=== PATIENT | female | born 1970 | race Caucasian/White ===

== ENCOUNTER 2017-07-27 11:15 | Emergency (ER) | payer OTHER ==
[2017-07-27] MEDS ORDERED: SODIUM CHLORIDE 1,000 ML IV STA (11:28)
[2017-07-27 11:32] VITALS: BP 125/87; PULSE 110; TEMP 97.4; BMI 23.1
--- NOTE | 2017-07-27 12:08 | PDOC ---
History of Present Illness <Radha Nj - Last Filed: 07/27/17 17:40> - General History Source: Patient, Family Exam Limitations: No Limitations - History of Present Illness Initial Comments: 07/27/17 11:59 47-year-old female patient with past medical history of hysterectomy, appendectomy presents with abdominal pain, fevers and bloody diarrhea. 2 days ago, the patient went out to dinner with her and had oysters, boar, grilled octupus. The patient's had eaten oysters and did not get sick. Overnight, patient developing a strong constant lower abdominal pain and subsequent blood in her stools. Was loose watery with blood in it. Denies nausea or vomiting but started developing fevers yesterday. MAXIMUM TEMPERATURE of 101. Never had a colonoscopy. First-time episode. Came into the ED for further evaluation. <Roberto Mcclain - Last Filed: 07/27/17 17:49> - General Chief Complaint: Diarrhea Stated Complaint: CRAMPING AND DIARRHEA Time Seen by Provider: 07/27/17 11:26 Past History <Radha Nj - Last Filed: 07/27/17 17:40> - Past Medical History COPD: No - Surgical History Appendectomy: Yes - Suicide/Smoking/Psychosocial Hx Smoking History: Never smoked Hx Alcohol Use: Yes (OCCASIONAL ONLY) Drug/Substance Use Hx: No Substance Use Type: None <Roberto Mcclain - Last Filed: 07/27/17 17:49> - Past Medical History Allergies/Adverse Reactions: Allergies Allergy/AdvReac Type Severity Reaction Status Date / Time ibuprofen Allergy Intermediate Swelling Verified 07/27/17 11:21 Penicillins Allergy Unknown Verified 07/27/17 11:21 Home Medications: Ambulatory Orders Ciprofloxacin [Cipro -] 500 mg PO Q12H #14 tablet 07/27/17 metroNIDAZOLE [Flagyl -] 500 mg PO Q8H #21 tablet 07/27/17 Review of Systems - Review of Systems Able to Perform ROS?: Yes Comments:: 07/27/17 12:08 GENERAL/CONSTITUTIONAL: +fever. No weakness. HEAD, EYES, EARS, NOSE AND THROAT: No change in vision. No ear pain or discharge. No sore throat. CARDIOVASCULAR: No chest pain or shortness of breath. RESPIRATORY: No cough, wheezing, or hemoptysis. GASTROINTESTINAL: + abdominal pain and bloody stools GENITOURINARY: No dysuria, frequency, or change in urination. MUSCULOSKELETAL: No joint or muscle swelling or pain. No neck or back pain. SKIN: No rash NEUROLOGIC: No headache, vertigo, loss of consciousness, or change in strength/ sensation. ENDOCRINE: No increased thirst. No abnormal weight change. HEMATOLOGIC/LYMPHATIC: No anemia, easy bleeding, or history of blood clots. ALLERGIC/IMMUNOLOGIC: No hives or skin allergy. <Roberto Mcclain - Last Filed: 07/27/17 17:49> *Physical Exam - Vital Signs Last Vital Signs Temp Pulse Resp BP Pulse Ox 97.4 F L 110 H 16 125/87 97 07/27/17 11:20 07/27/17 11:20 07/27/17 11:20 07/27/17 11:20 07/27/17 11:20 <Radha Nj - Last Filed: 07/27/17 17:40> - Vital Signs Last Vital Signs Temp Pulse Resp BP Pulse Ox 97.4 F L 110 H 16 125/87 97 07/27/17 11:20 07/27/17 11:20 07/27/17 11:20 07/27/17 11:20 07/27/17 11:20 - Physical Exam Comments: 07/27/17 12:09 GENERAL: Awake, alert, and fully oriented, in no acute distress. HEAD: No signs of trauma EYES: PERRLA, EOMI, sclera anicteric, conjunctiva clear ENT: Auricles normal inspection, hearing grossly normal, nares patent NECK: Normal ROM, supple LUNGS: Breath sounds equal, clear to auscultation bilaterally. No wheezes, and no crackles HEART: Regular rate and rhythm, normal S1 and S2, no murmurs, rubs or gallops ABDOMEN: TTP suprapubic, LLQ, left mid abdomen. Soft, No guarding, no rebound. No masses RECTAL: no hemorrhoids or tears. red blood on glove. EXTREMITIES: Normal range of motion, no edema. No clubbing or cyanosis. No cords, erythema, or tenderness NEUROLOGICAL: Cranial nerves II through XII grossly intact. Normal speech, normal gait SKIN: Warm, Dry, normal turgor, no rashes or lesions noted. <Roberto Mcclain - Last Filed: 07/27/17 17:49> ED Treatment Course - LABORATORY CBC & Chemistry Diagram: 07/27/17 11:35 07/27/17 14:30 - ADDITIONAL ORDERS Additional order review: Laboratory Results 07/27/17 07/27/17 07/27/17 14:30 11:35 11:35 PT with INR INR PTT (Actin FS) Sodium 135 L Potassium 3.7 Chloride 102 Carbon Dioxide 25 Anion Gap 8 BUN 12 Creatinine < 0.8 Creat Clearance w eGFR > 60 Random Glucose 108 H Lactic Acid 1.2 Calcium 8.4 Phosphorus 3.1 Magnesium 1.7 L Total Bilirubin 0.9 AST 17 ALT 15 Alkaline Phosphatase 47 Total Protein 6.0 L Albumin 3.5 Lipase 107 Stool Occult Blood Blood Type O POSITIVE Antibody Screen Negative 07/27/17 07/27/17 11:35 11:35 PT with INR 13.0 INR 1.16 PTT (Actin FS) 26.1 L Sodium Potassium Chloride Carbon Dioxide Anion Gap BUN Creatinine Creat Clearance w eGFR Random Glucose Lactic Acid Calcium Phosphorus Magnesium Total Bilirubin AST ALT Alkaline Phosphatase Total Protein Albumin Lipase Stool Occult Blood Trace Blood Type Antibody Screen 07/27/17 11:35 RBC 4.82 MCV 83.6 MCHC 34.7 RDW 13.7 MPV 7.8 Neutrophils % 78.5 Lymphocytes % 16.3 Monocytes % 4.2 Eosinophils % 0.8 Basophils % 0.2 - Medications Given in the ED: ED Medications Discontinued Medications Generic Name Dose Route Start Last Admin Trade Name Freq PRN Reason Stop Dose Admin Sodium Chloride 1,000 mls @ 1,000 mls/hr 07/27/17 11:28 07/27/17 11:51 Normal Saline - IV 07/27/17 12:27 1,000 mls/hr ASDIR STA Administration Morphine Sulfate 4 mg 07/27/17 15:51 07/27/17 15:55 Morphine Injection - IVPUSH 07/27/17 15:52 4 mg ONCE ONE Administration <Radha Nj - Last Filed: 07/27/17 17:40> - LABORATORY CBC & Chemistry Diagram: 07/27/17 11:35 07/27/17 14:30 - RADIOLOGY Radiology Studies Ordered: Category Date Time Status ABDOMEN & PELVIS CT WITH CONTR [CT] Stat CT Scan 07/27/17 11:26 Ordered <Roberto Mcclain - Last Filed: 07/27/17 17:49> Medical Decision Making - Medical Decision Making 07/27/17 16:52 Called the office of Dr. Macias, health and physical education professor for GI. Per office staff, the practice does not cover Sathya Avila for services cases. Call placed to the office of Dr. Hough of GI at [phone]. Awaiting callback. 07/27/17 17:[address] Hough. <Radha Nj - Last Filed: 07/27/17 17:40> - Medical Decision Making 07/27/17 12:10 Vital Signs Temp Pulse Resp BP Pulse Ox 97.4 F L 110 H 16 125/87 97 07/27/17 11:20 07/27/17 11:20 07/27/17 11:20 07/27/17 11:20 07/27/17 11:20 Given that the patient had been oysters of a bloody diarrhea, should consider infectious colitis such as vibrio. However, patient's does not have similar symptoms. Within the differential is irritable bowel disease, colon malignancy, bleeding diverticulosis, diverticulitis. Patient will need a CAT scan of the abdomen pelvis. We'll also send C. difficile, stool culture, ova and parasites. After CAT scan, we'll consult GI. 07/27/17 17:42 CBC, BMP 07/27/17 11:35 07/27/17 14:30 CMP Sodium 135 mmol/L (136-145) L 07/27/17 14:30 Potassium 3.7 mmol/L (3.5-5.1) 07/27/17 14:30 Chloride 102 mmol/L (98-107) 07/27/17 14:30 Carbon Dioxide 25 mmol/L (22-28) 07/27/17 14:30 Anion Gap 8 (8-16) 07/27/17 14:30 BUN 12 mg/dl (7-18) 07/27/17 14:30 Creatinine < 0.8 mg/dl (0.6-1.3) 07/27/17 14:30 Creat Clearance w eGFR > 60 (>60) 07/27/17 14:30 Random Glucose 108 mg/dl (74-106) H 07/27/17 14:30 Lactic Acid 1.2 mmol/L (0.0-2.0) 07/27/17 11:35 Calcium 8.4 mg/dl (8.4-10.2) 07/27/17 14:30 Phosphorus 3.1 mg/dl (2.5-4.6) 07/27/17 14:30 Magnesium 1.7 mg/dL (1.8-2.4) L 07/27/17 14:30 Total Bilirubin 0.9 mg/dl (0.2-1.0) 07/27/17 14:30 AST 17 U/L (10-42) 07/27/17 14:30 ALT 15 U/L (10-40) 07/27/17 14:30 Alkaline Phosphatase 47 U/L (32-92) 07/27/17 14:30 Total Protein 6.0 g/dl (6.4-8.3) L 07/27/17 14:30 Albumin 3.5 g/dl (3.5-5.0) 07/27/17 14:30 Lipase 107 U/L (73-393) 07/27/17 14:30 The CAT scan and pelvis demonstrates colitis. I discussed the case with cabinet builder Dr. Hough. Given that the patient has not eating and brought poultry and has decreased risk for C. difficile and hemorrhagic Escherichia coli , we'll initiate ciprofloxacin and Flagyl. Dr. Hough requests that the patient follows up in 4 days. Patient feels much more comfortable and like to go home. Patient was given instruction that a percentage of these patient's may be inflammatory such as Crohn's disease or ulcerative colitis. Patient understands that she will follow-up with a colonoscopy. I discussed the physical exam findings, ancillary test results and final diagnoses with the patient. I answered all of the patient's questions. The patient was satisfied with the care received and felt comfortable with the discharge plan and treatment plan. The patient will call their primary care physician within 24 hours to arrange follow-up and will return to the Emergency Department with any new, persistant or worsening symptoms. 07/27/17 17:44 <Roberto Mcclain - Last Filed: 07/27/17 17:49> *DC/Admit/Observation/Transfer - Attestations Scribe Attestion: 07/27/17 16:53 Documentation prepared by Radha Nj, acting as director medical economics for Roberto Mcclain MD. <Radha Nj - Last Filed: 07/27/17 17:40> - Discharge Dispostion Admit: No <Roberto Mcclain - Last Filed: 07/27/17 17:49> Diagnosis at time of Disposition: Colitis - Discharge Dispostion Disposition: HOME Condition at time of disposition: Improved - Prescriptions Prescriptions: Ciprofloxacin [Cipro -] 500 mg PO Q12H #14 tablet metroNIDAZOLE [Flagyl -] 500 mg PO Q8H #21 tablet - Referrals Referrals: Kitty Bender MD [Primary Care Provider] - Kareem Hough MD [Staff Physician] - - Patient Instructions Printed Discharge Instructions: DI for Colitis Additional Instructions: It is very important that you follow-up with the cabinet builder Dr. Hough this Thursday afternoon. He requests that she be seen at that time. Call tomorrow to schedule an appointment. During this time, please take the ciprofloxacin and Flagyl as prescribed. You may continue have bloody diarrhea for next few days. - Post Discharge Activity
[2017-07-27 12:17] LABS: BASO % 0.2 % (0-2.0); EOS % 0.8 % (0-4.5); HEMATOCRIT 40.3 % (32.4-45.2); LYMPH % 16.3 % (8-40); MCHC 34.7 g/dl (32.0-36.0); MEAN CELL VOLUME 83.6 fl (80-96); MEAN PLT VOLUME 7.8 fl (7.5-11.1); MONO % 4.2 % (3.8-10.2); NEUT % 78.5 % (42.8-82.8); PLATELET COUNT 271 K/MM3 (134-434); RBC 4.82 M/mm3 (3.60-5.2); RDW 13.7 % (11.6-15.6); WHITE BLOOD COUNT 14.3 K/mm3 (4.0-10.8)
[2017-07-27 12:33] LABS: ACTIVATED PTT 26.1 SECONDS (24.0-38.9)
[2017-07-27 12:38] LABS: INR 1.16 (0.82-1.09)
[2017-07-27 15:02] LABS: ALBUMIN 3.5 g/dl (3.5-5.0); ALK PHOS 47 U/L (32-92); ANION GAP 8 (8-16); BILIRUBIN,TOTAL 0.9 mg/dl (0.2-1.0); BLOOD UREA NITROGEN 12 mg/dl (7-18); CALCIUM 8.4 mg/dl (8.4-10.2); CHLORIDE 102 mmol/L (98-107); CO2 25 mmol/L (22-28); GLUCOSE,RANDOM 108 mg/dl (74-106); MAGNESIUM 1.7 mg/dL (1.8-2.4); PHOSPHOROUS 3.1 mg/dl (2.5-4.6); POTASSIUM 3.7 mmol/L (3.5-5.1); SGOT/AST 17 U/L (10-42); SGPT/ALT 15 U/L (10-40); SODIUM 135 mmol/L (136-145)
[2017-07-27 15:10] LABS: CREATININE < 0.8 mg/dl (0.6-1.3)
[2017-07-27 15:51] LABS: LIPASE 107 U/L (73-393)
[2017-07-27] MEDS ORDERED: morphine SULFATE 4 MG/ML VIAL ONE (15:51)
[2017-07-27] MEDS ORDERED: morphine CARPU-JECT 4 MG/1 ML DISP.SYRIN IVPUSH ONE (15:51)
[2017-07-27] MEDS ORDERED: CIPROFLOXACIN 500 MG TABLET (RESTRICTED TO ID) PO ONE (17:46)
[2017-07-27] MEDS ORDERED: metroNIDAZOLE 250 MG TABLET PO ONE (17:46)
[2017-07-27] MEDS ORDERED: CIPROFLOXACIN 250 MG TABLET (RESTRICTED TO ID) PO ONE (18:30)
[2017-07-27] MEDS ORDERED: metroNIDAZOLE 250 MG TABLET ONE (18:30)
== END 2017-07-27 18:34 | disposition home or self-care (01) ==
LOC: FER 11:15
PROC: 3E033NZ Introduction of Analgesics, Hypnotics, Sedatives into Peripheral Vein, Percutaneous Approach (ICD-10-PCS; principal; 2017-07-27)
PROC: 3E0337Z Introduction of Electrolytic and Water Balance Substance into Peripheral Vein, Percutaneous Approach (ICD-10-PCS; 2017-07-27)
DX: K52.9 Noninfective gastroenteritis and colitis, unspecified (principal)
CPT/HCPCS: 36415; 74177-TC; 80053; 82272; 83605; 83690; 83735; 84100; 85025; 85610; 85730; 86850; 86900; 86901; 87040; 99283-25

== ENCOUNTER 2017-08-28 08:12 | Day surgery (SDC) | payer OTHER ==
[2017-08-28] MEDS ORDERED: PROPOFOL 20 ML ONE ×3 (08:50)
[2017-08-28 08:54] VITALS: BMI 22.2
[2017-08-28 09:45] VITALS: TEMP 97.7
--- NOTE | 2017-08-28 09:47 | PROC ---
Endoscopy Procedure Endoscopy procedure completed. Please see scanned procedure report.
[2017-08-28 11:10] VITALS: BP 105/62; PULSE 72
--- NOTE | 2017-08-31 11:35 | PATH ---
Surgical Pathology Report Patient Name: JACK MELENDEZ [facility]. Rec. #: [id number] /Age/Gender: 1970 (Age: 47) / F Account: [id number] Location: [facility]-ENDOSCOPY Taken: 08/28/2017 Received: 08/28/2017 Reported: 08/31/2017 Physicians: Kareem Hough M.D. Specimen(s) Received A: BX TERMINAL ILEUM B: BX ASCENDING COLON C: BX DESCENDING COLON D: BX SIGMOID COLON E: BX RECTUM Clinical History Diarrhea Diarrhea, hemorrhoids Final Diagnosis A. TERMINAL ILEUM, BIOPSY: SMALL INTESTINAL MUCOSA WITH NO PATHOLOGIC CHANGES. B. COLON, ASCENDING, BIOPSY: COLONIC MUCOSA WITH NO PATHOLOGIC CHANGES. NO ACTIVE COLITIS, ARCHITECTURAL DISTORTION, GRANULOMATA, OR DYSPLASIA IDENTIFIED. NO MICROSCOPIC COLITIS IDENTIFIED (NO LYMPHOCYTIC OR COLLAGENOUS COLITIS IDENTIFIED). C. COLON, DESCENDING, BIOPSY: COLONIC MUCOSA WITH BENIGN SUBMUCOSAL LYMPHOID AGGREGATES. NO ACTIVE COLITIS, ARCHITECTURAL DISTORTION, GRANULOMATA, OR DYSPLASIA IDENTIFIED. NO MICROSCOPIC COLITIS IDENTIFIED (NO LYMPHOCYTIC OR COLLAGENOUS COLITIS IDENTIFIED). D. COLON, SIGMOID, BIOPSY: COLONIC MUCOSA WITH BENIGN LYMPHOID AGGREGATES WITHIN LAMINA PROPRIA. NO ACTIVE COLITIS, ARCHITECTURAL DISTORTION, GRANULOMATA, OR DYSPLASIA IDENTIFIED. NO MICROSCOPIC COLITIS IDENTIFIED (NO LYMPHOCYTIC OR COLLAGENOUS COLITIS IDENTIFIED). E. COLON, RECTUM, BIOPSY: COLONIC MUCOSA WITH NO PATHOLOGIC CHANGES. NO ACTIVE COLITIS, ARCHITECTURAL DISTORTION, GRANULOMATA, OR DYSPLASIA IDENTIFIED. NO MICROSCOPIC COLITIS IDENTIFIED (NO LYMPHOCYTIC OR COLLAGENOUS COLITIS IDENTIFIED). Comment: The findings may indicate some form of antigenic stimulation to the GI tract. Electronically Signed Driss Valdez M.D. Gross Description A. Received in formalin, labeled "BX terminal ileum" are 2 tillman, irregular portions of soft tissue measuring 0.2 cm. in greatest dimension. The specimens are submitted in toto in one cassette. B. Received in formalin, labeled "BX ascending colon" are 2 tillman, irregular portions of soft tissue measuring 0.1 and 0.2 cm. in greatest dimension. The specimens are submitted in toto in one cassette. C. Received in formalin, labeled "BX descending colon" are 2 tillman, irregular portions of soft tissue measuring 0.2 cm in greatest dimension. The specimens are submitted in toto in one cassette. D. Received in formalin, labeled "BX sigmoid colon" is a tillman, irregular portion of soft tissue measuring 0.4 cm. in greatest dimension. The specimen is submitted in toto in one cassette. E. Received in formalin, labeled "BX rectum" are 2 tillman, irregular portions of soft tissue measuring 0.2 and 0.3 cm. in greatest dimension. The specimens are submitted in toto in one cassette. KARTHIKEYAN/08/28/2017 lyric08/28/2017
== END 2017-08-28 10:30 | disposition home or self-care (01) ==
LOC: JASU-ENDO 08:12
PROVIDERS: ATTEND Internal Medicine Gastroenterology
PROC: 0DBL8ZX Excision of Transverse Colon, Via Natural or Artificial Opening Endoscopic, Diagnostic (ICD-10-PCS; 2017-08-28)
PROC: 0DBN8ZX Excision of Sigmoid Colon, Via Natural or Artificial Opening Endoscopic, Diagnostic (ICD-10-PCS; 2017-08-28)
PROC: 0DBP8ZX Excision of Rectum, Via Natural or Artificial Opening Endoscopic, Diagnostic (ICD-10-PCS; 2017-08-28)
PROC: 0DBM8ZX Excision of Descending Colon, Via Natural or Artificial Opening Endoscopic, Diagnostic (ICD-10-PCS; 2017-08-28)
PROC: 0DBK8ZX Excision of Ascending Colon, Via Natural or Artificial Opening Endoscopic, Diagnostic (ICD-10-PCS; principal; 2017-08-28 09:15)
DX: K92.1 Melena (principal); K64.8 Other hemorrhoids; K57.30 Diverticulosis of large intestine without perforation or abscess without bleeding
CPT/HCPCS: 88305-TC